=== PATIENT | female | born 2000 | race Caucasian/White ===

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

== ENCOUNTER 2022-02-05 08:41 | Emergency (ER) | payer BC, SELFPAY ==
[2022-02-05 08:49] VITALS: BP 124/58; PULSE 96; RESP 16; TEMP 36.9; O2SAT 99
--- NOTE | 2022-02-05 09:11 | ED.URI ---
HPI - URI/Sore Throat General Chief Complaint: Upper Respiratory Infection Stated Complaint: uri Time Seen by Provider: 02/05/22 09:01 Source: patient and RN notes reviewed Mode of arrival: ambulatory Limitations: no limitations History of Present Illness HPI Narrative: Patient presents today complaining of a 2 to 3-week history of cough, nasal congestion, postnasal drip. She has run a bit of a fever the beginning of her illness, but none since then. Denies shortness of breath. No sick contacts within her home. She has taken 5 home COVID-19 test that were all negative. History of asthma. She has been taking cold and flu medication as well as Xyzal without much relief. She is also been using her albuterol inhaler with mild relief. MD elicited complaint: cough, nasal congestion and sinus pain Related Data Home Medications Medication Instructions Recorded Confirmed fluvoxamine 1 mg PO DAILY 04/29/21 11/12/21 lamotrigine 1 mg PO DAILY 04/29/21 11/12/21 dexmethylphenidate [Focalin XR] 30 mg PO DAILY 11/12/21 11/12/21 hydroxyzine HCl 50 mg PO DAILY 11/12/21 11/12/21 ergocalciferol (vitamin D2) 02/05/22 02/05/22 levonorgestrel-ethinyl estrad tablet 02/05/22 [Rocio (28)] Allergies Allergy/AdvReac Type Severity Reaction Status Date / Time coconut oil Allergy Severe Anaphylactic Verified 02/05/22 09:06 Shock Review of Systems Review of Systems: CONSTITUTIONAL: Denies body aches, fever, chills, or sweats. EYES: Denies visual changes, redness, or discharge. ENT: Denies rhinorrhea, sore throat, or otalgia.+ Congestion, postnasal drip CARDIOVASCULAR: Denies chest pain, palpitations, or edema. RESPIRATORY: Denies dyspnea.+ Cough GASTROINTESTINAL: Denies abdominal pain, nausea, vomiting, or diarrhea. GENITOURINARY: Denies dysuria or hematuria. SKIN: Denies rash, itching, or wounds. MUSCULOSKELETAL: Denies back pain, joint pain, or myalgia. NEUROLOGIC: Denies headache, numbness, tingling, or weakness. PSYCH: Denies depression or anxiety. [facility] Past Medical History Medical History (Updated 02/05/22 @ 09:16 by Geraldine Garcia, [employer], ) Asthma Family History Family History Other Family history non-contributory Social History Social History Gender identity (if verbalized by the patient): Female Comments At time of signature, I have reviewed and agree with nursing past medical, surgical, social and family history unless otherwise noted. Please see nursing chart for further information. There is no relevant family history pertinent to the presenting complaint Exam Narrative: GENERAL: Well-appearing, well-nourished, and in no acute distress. HEAD: Normocephalic, atraumatic. EYES: EOMI. No redness or drainage. Conjunctivae normal. ENT: Mucous membranes pink and moist. Nares congested with green purulent discharge. No rhinorrhea. TMs normal bilaterally. Throat normal. Uvula midline. NECK: Normal AROM. Supple. No lymphadenopathy. CHEST: No respiratory distress. Clear to auscultation. HEART: Regular rate and rhythm. No murmur appreciated. Normal peripheral pulses. EXTREMITIES: Normal range of motion. No edema. SKIN: Warm, dry, no rash. Capillary refill normal. Normal skin turgor. NEURO: No focal deficits. Alert and oriented x3. Gait steady. PSYCH: Normal affect. No signs of depression or anxiety. Course Course Level of Care: Express Care Visit Vital Signs Vital signs: Vital Signs Temperature 98.4 F 02/05/22 08:49 Pulse Rate 96 02/05/22 08:49 Respiratory Rate 16 02/05/22 08:49 Blood Pressure 124/58 L 02/05/22 08:49 Pulse Oximetry 99 02/05/22 08:49 Temperature 98.4 F 02/05/22 08:49 Pulse Rate 96 02/05/22 08:49 Respiratory Rate 16 02/05/22 08:49 Blood Pressure 124/58 L 02/05/22 08:49 Pulse Oximetry 99 02/05/22 08:49 Reviewed. Pt has b
== END 2022-02-05 09:20 | disposition home or self-care (01) ==
PROVIDERS: Emergency Provider Nurse Practitioner; PCP Family Medicine
DX: J40 Bronchitis, not specified as acute or chronic (principal); J01.90 Acute sinusitis, unspecified; J45.909 Unspecified asthma, uncomplicated
CPT/HCPCS: 99213; G0463

== ENCOUNTER 2022-03-16 12:46 | Outpatient (CLI) | payer BC, SELFPAY ==
--- NOTE | ~2022-03-16 | XR_ITS ---
EXAMINATION: XR knee LT 3V DATE: 03/16/2022 13:01 INDICATION: Left anterior knee pain TECHNIQUE: Three views of the left knee were obtained. COMPARISON: None. FINDINGS: Alignment is normal. No fracture or osteochondral lesion. Joint spaces are normal with no e rosions. No joint effusion/synovitis. Soft tissues are unremarkable. IMPRESSION: 1. No acute osseous abnormality. Reviewed, dictated and finalized at location F.
== END 2022-03-16 12:47 | disposition home or self-care (01) ==
PROVIDERS: PCP Family Medicine; Visit Provider Physician Assistant
DX: M25.562 Pain in left knee (principal)
CPT/HCPCS: 73562

== ENCOUNTER 2022-08-07 13:57 | Emergency (ER) | payer OTHER, BC, SELFPAY ==
--- NOTE | ~2022-08-07 | XR_ITS ---
EXAM: XR knee LT min 4V DATE: 08/07/2022 14:29 HISTORY: fall, lt knee with abrusion . COMPARISON: 03/16/22. FINDINGS: Normal mineralization. No fracture or dislocation. No lytic or blastic lesion. Mild medial joint space narrowing. No erosion or periosteal change. Soft tissues within normal limits. IMPRESSION: No acute finding in the left knee. Reviewed, dictated and finalized at location K.
--- NOTE | ~2022-08-07 | XR_ITS ---
EXAM: XR ankle RT min 3V DATE: 08/07/2022 14:29 HISTORY: fall, twisted rt ankle . COMPARISON: None available. FINDINGS: Normal mineralization. No fracture or dislocation. No lytic or blastic lesion. Joint space s are maintained. No erosion or periosteal change. Soft tissues within normal limits. IMPRESSION: No acute osseous finding in the right ankle. Reviewed, dictated and finalized at location K.
[2022-08-07 14:11] VITALS: BP 144/77; PULSE 98; RESP 16; TEMP 37.3; O2SAT 100
--- NOTE | 2022-08-07 14:15 | ED.LOWEXIN ---
HPI - Extremity Injury (Lower) General Chief Complaint: Extremity Injury, Lower Stated Complaint: Fall Injury Left Knee Pain, Right Ankle Pain Time Seen by Provider: 08/07/22 14:05 Source: patient Mode of arrival: ambulatory Limitations: no limitations History of Present Illness HPI Narrative: Ms. Hopson is a 21-year-old female patient presenting to the clinic today that reports that she fell while at work its next this morning. 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 She has a abrasion/scrape to the left anterior knee and right lateral ankle discomfort. Related Data Home Medications Medication Instructions Recorded Confirmed lamotrigine 25 mg tablet 25 mg PO DAILY 04/29/21 08/07/22 hydroxyzine HCl 50 mg tablet 50 mg PO DAILY 11/12/21 08/07/22 ergocalciferol (vitamin D2) 1,250 1,250 mcg PO DAILY 02/05/22 08/07/22 mcg (50,000 unit) capsule albuterol sulfate 90 mcg/actuation 2 inh inhalation DIRECTED 08/07/22 08/07/22 aerosol inhaler fluticasone propionate 50 50 mcg intranasal DAILY 08/07/22 08/07/22 mcg/actuation nasal spray,suspension fluvoxamine 100 mg tablet 100 mg PO DAILY 08/07/22 08/07/22 Allergies Allergy/AdvReac Type Severity Reaction Status Date / Time coconut oil Allergy Severe Anaphylactic Verified 08/07/22 14:04 Shock Review of Systems Review of Systems: Pertinent positives per HPI. Patient denies any fever, chills, rash, headache, visual changes, dizziness, cough, runny nose, sore throat, shortness of breath, chest pain, palpitations, nausea, vomiting, diarrhea, constipation, abdominal pain, or any urinary issues. 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 There is no relevant family history pertinent to the patient complaint. Exam Narrative: General: Well-developed, well nourished, in no apparent distress Head: Normocephalic, atraumatic. Cardio: Regular rate and rhythm, s1 and s2 normal, no murmur appreciated. Resp: Clear to auscultation bilaterally, no rhonchi, rales, wheezing or rubs. Musculoskeletal: No deformity, scrape/scratch to the left anterior knee, mild tenderness to palpation over the patella, flexion and extension are within normal limits with mild crepitus, no swelling of the right ankle however she has tenderness to the right lateral malleolus, pain with plantar flexion and varus maneuvers without laxity, grossly normal range of motion, muscle strength strong and equal, peripheral pulse strong, no edema, no cyanosis, normal gait and station Course Course Emergency Course: Portions of this record may have been created with voice recognition software. Level of Care: Express Care Visit Vital Signs Vital signs: Vital Signs Temperature 37.3 C 08/07/22 14:11 Pulse Rate 98 08/07/22 14:11 Respiratory Rate 16 08/07/22 14:11 Blood Pressure 144/77 H 08/07/22 14:11 Pulse Oximetry 100 08/07/22 14:11 Oxygen Delivery Room Air 08/07/22 14:11 Temperature 37.3 C 08/07/22 14:11 Pulse Rate 98 08/07/22 14:11 Respiratory Rate 16 08/07/22 14:11 Blood Pre
[2022-08-07 14:18] VITALS: BP 144/77; PULSE 98; RESP 16; TEMP 37.3; O2SAT 100
== END 2022-08-07 14:45 | disposition home or self-care (01) ==
PROVIDERS: Emergency Provider Nurse Practitioner Family; PCP Family Medicine
DX: S93.411A Sprain of calcaneofibular ligament of right ankle, initial encounter (principal); S80.02XA Contusion of left knee, initial encounter; S80.212A Abrasion, left knee, initial encounter; W01.0XXA Fall on same level from slipping, tripping and stumbling without subsequent striking against object, initial encounter; Y99.0 Civilian activity done for income or pay; J45.909 Unspecified asthma, uncomplicated
CPT/HCPCS: 73564; 73610; 99214; G0463

== ENCOUNTER 2022-10-06 22:48 | Emergency (ER) | payer BC, SELFPAY ==
[2022-10-06 23:13] VITALS: BP 158/89; PULSE 120; RESP 18; TEMP 37.1; O2SAT 100
--- NOTE | 2022-10-07 00:20 | ED.EYEPROB ---
HPI - Eye Problem General Chief complaint: Eye Problems Stated complaint: left eye swollen Time Seen by Provider: 10/07/22 00:12 History of Present Illness HPI Narrative: Patient is a 22-year-old female who wears glasses here for evaluation of left eye pain and irritation over the past several hours. Patient states that she was at work when an object hit her in the left eye. Since then she has reported pain and tearing from the eye. She denies any decreased vision, pain with eye movement, nausea or vomiting, contact lens use. Related Data Home Medications Medication Instructions Recorded Confirmed lamotrigine 25 mg tablet 25 mg PO DAILY 04/29/21 08/07/22 hydroxyzine HCl 50 mg tablet 50 mg PO DAILY 11/12/21 08/07/22 ergocalciferol (vitamin D2) 1,250 1,250 mcg PO DAILY 02/05/22 08/07/22 mcg (50,000 unit) capsule albuterol sulfate 90 mcg/actuation 2 inh inhalation DIRECTED 08/07/22 08/07/22 aerosol inhaler fluticasone propionate 50 50 mcg intranasal DAILY 08/07/22 08/07/22 mcg/actuation nasal spray,suspension fluvoxamine 100 mg tablet 100 mg PO DAILY 08/07/22 08/07/22 Allergies Allergy/AdvReac Type Severity Reaction Status Date / Time coconut oil Allergy Severe Anaphylactic Verified 10/06/22 23:16 Shock Review of Systems Review of Systems: Gen: Denies fevers or chills Eyes: Reports left eye pain. ENT: Denies congestion Respiratory: Denies shortness of breath or cough CV: Denies chest pain or palpitations GI: Denies abdominal pain nausea, emesis or diarrhea denies burning, urgency, frequency or hematuria Musculoskeletal: Denies back pain or muscle pain Neuro: Denies numbness, tingling, weakness or focal weakness Skin: Denies rash Except as documented, all other systems reviewed and negative [facility] Past Medical History Medical History Asthma Family History Family History Other Diabetes mellitus Family history non-contributory Heart disease Ovarian cancer Social History Social History (Reviewed 08/07/22 @ 14:16 by LOGAN Dias Smoking status: Never smoker Alcohol intake: never Substance use: never Substance use type: does not use 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 Head: Normocephalic and atraumatic. EYES: PERRLA/EOMI, conjunctivae clear. Fluorescein exam reveals small area of uptake along left cornea. Percy sign negative. NOSE: No nasal drainage EARS: External ear normal in appearance THROAT: Oropharynx is clear. Mucous membranes are moist. NECK: Supple. No adenopathy, no masses. RESPIRATORY: Airway patent, respirations nonlabored. Clear to auscultation bilaterally, no rales, rhonchi, wheezing. CARDIOVASCULAR: Regular rate and rhythm without murmurs, rubs, or gallops. ABDOMINAL: Normoactive bowel sounds. Soft, nontender, nondistended. No rebound tenderness or guarding. MUSCULOSKELETAL: Extremities are warm and well-perfused. Moves all extremities well. No edema. NEURO: Normal speech. No focal neurologic deficits. SKIN: Skin is warm and dry. No rashes. PSYCHIATRIC: Normal affect/mood. Course Vital Signs Vital signs: Vital Signs Temperature 98.7 F 10/06/22 23:13 Pulse Rate 120 H 10/06/22 23:13 Respiratory Rate 18 10/06/22 23:13 Blood Pressure 158/89 H 10/06/22 23:13 Pulse Oximetry 100 10/06/22 23:13 Oxygen Delivery Room Air 10/06/22 23:13 Temperature 98.7 F 10/06/22 23:13 Pulse Rate 113 H 10/07/22 01:23 Respiratory Rate 15 10/07/22 01:23 Blood Pressure 150/80 H 10/07/22 01:01 Pulse Oximetry 100 10/07/22 00:49 Oxygen Delivery Room Air
[2022-10-07 00:49] VITALS: BP 158/86; PULSE 127; RESP 16; O2SAT 100
[2022-10-07] MEDS: ERYTHROMYCIN OPHTH OINTMENT 1 GM TUBE 1 APPLIC LEFT EYE (00:54)
[2022-10-07 00:58] VITALS: PULSE 114; RESP 19
[2022-10-07 00:59] VITALS: BP 149/70; PULSE 117; RESP 17
[2022-10-07 01:00] VITALS: PULSE 121; RESP 19
--- NOTE | 2022-10-07 01:00 | PC.NURSE ---
Pt not allowed to leave at this time per provider
--- NOTE | 2022-10-07 01:00 | PC.NURSE ---
visual acuity for bilateral eyes 20/30
[2022-10-07 01:01] VITALS: BP 150/80; PULSE 118; RESP 21
[2022-10-07] MEDS: hydrOXYzine HCL 25 MG TABLET 50 MG PO (01:09)
[2022-10-07 01:23] VITALS: PULSE 113; RESP 15
== END 2022-10-07 01:33 | disposition home or self-care (01) ==
PROVIDERS: Emergency Provider Emergency Medicine; PCP Family Medicine
DX: S05.02XA Injury of conjunctiva and corneal abrasion without foreign body, left eye, initial encounter (principal); W22.8XXA Striking against or struck by other objects, initial encounter; J45.909 Unspecified asthma, uncomplicated
CPT/HCPCS: 99283; A9270

== ENCOUNTER 2022-11-04 12:29 | Emergency (ER) | payer BC, SELFPAY ==
[2022-11-04 12:36] VITALS: BP 137/74; PULSE 125; RESP 18; TEMP 37.2; O2SAT 96
--- NOTE | 2022-11-04 12:58 | ED.URI ---
HPI - URI/Sore Throat General Chief Complaint: Upper Respiratory Infection Stated Complaint: Cough,Fatique Time Seen by Provider: 11/04/22 12:58 Source: patient and RN notes reviewed Mode of arrival: ambulatory Limitations: no limitations History of Present Illness HPI Narrative: 22 y/o female presented for complaint of sinus pressure, congestion, drainage, and cough. She states she was seen on 10/13/2022 for similar symptoms an outside urgent care, given a 10 day course of amoxicillin which she reports completing. Since then she was seen at the same urgent care and was told supportive measures for a sinus infection. Endorses for the last 2 days his symptoms have worsened with fatigue, hoarse voice, sore throat. She denies shortness of breath, wheezing, nausea, vomiting, diarrhea, fevers or chills. She is taking DayQuil and NyQuil for symptoms. She endorses her friend tested positive for COVID. MD elicited complaint: cough Related Data Home Medications Medication Instructions Recorded Confirmed ergocalciferol (vitamin D2) 1,250 1,250 mcg WEEKLY 11/04/22 11/04/22 mcg (50,000 unit) capsule fluvoxamine 100 mg tablet 100 mg DIRECTED 11/04/22 11/04/22 hydroxyzine HCl 50 mg tablet 50 mg HS 11/04/22 11/04/22 lamotrigine 100 mg tablet 100 mg DAILY 11/04/22 11/04/22 norethindrone 1 mg-ethinyl 1 tablet DAILY 11/04/22 11/04/22 estradiol 20 mcg (21)-iron 75 mg (7) tablet ([place] Fe 12/10 (28)) Allergies Allergy/AdvReac Type Severity Reaction Status Date / Time coconut oil Allergy Severe Anaphylactic Verified 11/04/22 12:43 Shock Review of Systems Review of Systems: ROS per HPI [facility] Past Medical History Medical History Asthma Family History Family History Other Diabetes mellitus Family history non-contributory Heart disease Ovarian cancer Social History Social History Smoking status: Never smoker Alcohol intake: never Substance use: never Substance use type: does not use 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 TMs pearly carrillo with dull light reflex bilaterally; no tragal tenderness. Oropharynx without lesions or exudate, no drooling, no hoarseness, no trismus, uvula midline. CHEST: Clear to auscultation, breath sounds equal. No wheezing, rhonchi, rales, or stridor. No respiratory distress, speaks in full sentences. HEART: Regular rate and rhythm. No murmur heard. SKIN: Warm, dry, no rash. NEURO: Alert and oriented x3. Course Course Emergency Course: Patient is aware of diagnosis, understands and agrees to treatment plan. Anticipatory guidance given. Patient agrees to follow-up as directed and is aware of reasons to seek care at the emergency department. Portions of this record may have been created with voice recognition software Level of Care: Express Care Visit Vital Signs Vital signs: Vital Signs Temperature 98.9 F 11/04/22 12:36 Pulse Rate 125 H 11/04/22 12:36 Respiratory Rate 18 11/04/22 12:36 Blood Pressure 137/74 11/04/22 12:36 Pulse Oximetry 96 11/04/22 12:36 Oxygen Delivery Room Air 11/04/22 12:36 Temperature 98.9 F 11/04/22 12:36 Pulse Rate 125 H 11/04/22 12:36 Respiratory Rate 18 11/04/22 12:36 Blood Pressure 137/74 11/04/22 12:36 Pulse Oximetry 96 11/04/22 12:36 Oxygen Delivery Room Air 11/04/22 12:36 reviewed MDM - URI/Sore Throat MDM Narrative Medical decision making narrative: COVID influenza results reviewed with patient. Patient has already completed a course
== END 2022-11-04 13:36 | disposition home or self-care (01) ==
PROVIDERS: Emergency Provider Nurse Practitioner Family; PCP Family Medicine
DX: B34.9 Viral infection, unspecified (principal); Z20.822 Contact with and (suspected) exposure to COVID-19; J45.909 Unspecified asthma, uncomplicated
CPT/HCPCS: 87426; 87804; 99213; C9803; G0463

== ENCOUNTER 2023-03-05 10:54 | Emergency (ER) | payer BC, SELFPAY ==
--- NOTE | ~2023-03-05 | XR_ITS ---
EXAMINATION: XR hand LT min 3V INDICATION: Left hand pain TECHNIQUE: Three views of the left hand are obtained. COMPARISON: None available FINDINGS: No fracture, dislocation, or subluxation. The bones, soft tissues, and joint spaces are nor mal. IMPRESSION: 1. No acute osseous abnormality. Reviewed, dictated and finalized at location A.
[2023-03-05 11:16] VITALS: BP 156/93; PULSE 105; RESP 16; TEMP 36.8; O2SAT 100
--- NOTE | 2023-03-05 12:18 | ED.UPPEXIN ---
HPI - Extremity Injury (Upper) General Chief Complaint: Extremity Injury, Upper Stated Complaint: Left Hand Pain Source: patient and RN notes reviewed History of Present Illness HPI narrative: 22-year-old female presents to urgent care with complaints of left 2nd, 3rd and 4th finger pain. Patient states prior to arrival she was attempting to open a window when the window open dinner 3 fingers got stuck in between the opened window and above window. patient reports a little bit a numbness and tingling to the fingertips. Patient isn't taking anything for pain. Denies any other injuries no other complaints. Some parts of this dictation were generated by voice recognition software and may contain typographical and/or grammatical inaccuracies. Related Data Home Medications Medication Instructions Recorded Confirmed ergocalciferol (vitamin D2) 1,250 1,250 mcg WEEKLY 11/04/22 03/05/23 mcg (50,000 unit) capsule fluvoxamine 100 mg tablet 100 mg DIRECTED 11/04/22 03/05/23 hydroxyzine HCl 50 mg tablet 50 mg HS 11/04/22 03/05/23 lamotrigine 100 mg tablet 100 mg DAILY 11/04/22 03/05/23 norethindrone 1 mg-ethinyl 1 tablet DAILY 11/04/22 03/05/23 estradiol 20 mcg (21)-iron 75 mg (7) tablet ([place] Fe 12/10 (28)) amlodipine 5 mg tablet 5 mg PO DAILY 03/05/23 03/05/23 fluticasone propionate 50 1 spray intranasal DIRECTED 03/05/23 03/05/23 mcg/actuation nasal spray,suspension Allergies Allergy/AdvReac Type Severity Reaction Status Date / Time coconut oil Allergy Severe Anaphylactic Verified 03/05/23 11:08 Shock Review of Systems Review of Systems: CONSTITUTIONAL: Denies fever, chills, or sweats. EYES: Denies visual changes, redness, or discharge. ENT: Denies otalgia and sore throat CARDIOVASCULAR: Denies chest pain, palpitations, or edema. RESPIRATORY: Denies cough or dyspnea. GASTROINTESTINAL: Denies abdominal pain, nausea, vomiting, or diarrhea. GENITOURINARY: Denies dysuria or hematuria. SKIN: Denies rash or itching. MUSCULOSKELETAL: Left finger pain NEUROLOGIC: Denies headache, numbness, or weakness. Pertinent positives per HPI. 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 There is no relevant family history pertinent to the patient complaint. Exam Narrative: GENERAL: This is a well-nourished, well-developed patient, in no apparent distress. HEAD: normocephalic, atraumatic. EYES: Sclera clear/white. Vision is grossly intact. EARS: External ears normal, auditory canals clear and without drainage. Hearing grossly intact. NOSE: External nose normal with no obvious nasal discharge, nares without redness, no rhinorrhea. THROAT: Mucous membranes moist, posterior pharynx clear. NECK: Neck supple, non-tender without lymphadenopathy, masses or thyromegaly. CARDIOVASCULAR: Regular rate RESPIRATORY: no respiratory distress SKIN: warm, intact with no suspicious lesions or rash, good texture and turgor. NEURO: awake, alert, and oriented to person, place and time. There were no obvious focal neurologic abnormalities. EXTREMITIES: No clubbing, cyanosis, or edema. No yasmine
== END 2023-03-05 12:25 | disposition home or self-care (01) ==
PROVIDERS: Emergency Provider Nurse Practitioner Family; PCP Family Medicine
DX: S60.00XA Contusion of unspecified finger without damage to nail, initial encounter (principal); W23.2XXA Caught, crushed, jammed or pinched between a moving and stationary object, initial encounter
CPT/HCPCS: 73130; 99213; G0463

== ENCOUNTER 2023-09-27 22:54 | Emergency (ER) | payer BC, SELFPAY ==
--- NOTE | ~2023-09-27 | XR_ITS ---
EXAM: XR ankle LT min 3V DATE: 09/27/2023 23:24 HISTORY: fall, rolled ankle, c/o pain . COMPARISON: None available. FINDINGS: Normal mineralization. No fracture or dislocation. No lytic or blastic lesion. Joint space s are maintained. No erosion or periosteal change. Soft tissues within normal limits. IMPRESSION: No acute osseous finding in the left ankle. Reviewed, dictated and finalized at location K. 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
[2023-09-27 23:07] VITALS: BP 141/75; PULSE 96; RESP 20; TEMP 36.4; O2SAT 100
--- NOTE | 2023-09-28 00:28 | ED.LOWEXIN ---
HPI - Extremity Injury (Lower) General Chief Complaint: Extremity Injury, Lower Stated Complaint: L ankle injury Time Seen by Provider: 09/28/23 00:13 Source: patient Mode of arrival: ambulatory Limitations: no limitations History of Present Illness HPI Narrative: Patient is a 22-year-old female who presents ED with report of left ankle pain. Patient reports she was on a walk tonight when she tripped over a curb and rolled her left ankle. She believes that rolled inward and outward. She complains of pain and swelling to your left ankle. She is able to ambulate, but complains of pain with this. Denies numbness or tingling. Denies knee pain. Related Data Home Medications Medication Instructions Recorded Confirmed ergocalciferol (vitamin D2) 1,250 1,250 mcg WEEKLY 11/04/22 03/05/23 mcg (50,000 unit) capsule fluvoxamine 100 mg tablet 100 mg DIRECTED 11/04/22 03/05/23 hydroxyzine HCl 50 mg tablet 50 mg HS 11/04/22 03/05/23 lamotrigine 100 mg tablet 100 mg DAILY 11/04/22 03/05/23 norethindrone 1 mg-ethinyl 1 tablet DAILY 11/04/22 03/05/23 estradiol 20 mcg (21)-iron 75 mg (7) tablet ([place] Fe 12/10 ()) amlodipine 5 mg tablet 5 mg PO DAILY 03/05/23 03/05/23 fluticasone propionate 50 1 spray intranasal DIRECTED 03/05/23 03/05/23 mcg/actuation nasal spray,suspension Allergies Allergy/AdvReac Type Severity Reaction Status Date / Time coconut oil Allergy Severe Anaphylactic Verified 03/05/23 11:08 Shock Review of Systems Review of Systems: CONSTITUTIONAL: Denies fever, chills, or sweats. MUSCULOSKELETAL: See HPI. NEUROLOGIC: Denies tingling, numbness, or weakness. 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 HEAD: Normocephalic, atraumatic. NECK: Supple. No adenopathy, no masses. RESPIRATORY: Airway patent, respirations nonlabored. CARDIOVASCULAR: Regular rate and rhythm without murmurs, rubs, or gallops. Pedal pulses 2+ and equal bilaterally. MUSCULOSKELETAL: Moves all extremities. TTP along L lateral malleoli, extending across L anterolateral ankle. Mild swelling noted, no ecchymosis. Sensation intact. Able to wiggle toes. SKIN: Warm, dry, normal color. No rashes. NEURO: A&O X3. Speech clear. Cranial nerves II-XII grossly intact. No ataxic movements. PSYCHIATRIC: Appropriate mood and affect. Normal interaction. Course Vital Signs Vital signs: Vital Signs Temperature 97.6 F 09/27/23 23:07 Pulse Rate 96 09/27/23 23:07 Respiratory Rate 20 09/27/23 23:07 Blood Pressure 141/75 H 09/27/23 23:07 Pulse Oximetry 100 09/27/23 23:07 Oxygen Delivery Room Air 09/27/23 23:07 Temperature 97.6 F 09/27/23 23:07 Pulse Rate 96 09/27/23 23:07 Respiratory Rate 20 09/27/23 23:07 Blood Pressure 141/75 H 09/27/23 23:07 Pulse Oximetry 100 09/27/23 23:07 Oxygen Delivery Room Air 09/27/23 23:07 MDM - Extremity Injury (Lower) MDM Narrative Medical decision making narrative: Patient's injury is consistent with musculoskeletal etiology. No signs of
== END 2023-09-28 00:33 | disposition home or self-care (01) ==
LOC: ANHED 09-28 00:38
PROVIDERS: Emergency Provider Physician Assistant; PCP Family Medicine
DX: S93.402A Sprain of unspecified ligament of left ankle, initial encounter (principal); J45.909 Unspecified asthma, uncomplicated; W10.1XXA Fall (on)(from) sidewalk curb, initial encounter
CPT/HCPCS: 73610; 99283